=== PATIENT | female | born 2000 | race Caucasian/White ===

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

== ENCOUNTER 2019-02-21 16:04 | Emergency (ER) | payer MEDICAID ==
[~2019-02-21] VITALS: Ht 160 cm; Wt 81.4 kg
[~2019-02-21 16:04] MED LIST changes: +MACROBID100 MG PO; +TYLENOL W/CODEI1 TAB PO
[2019-02-21 16:28] VITALS: Ht 160 cm; Wt 81.4 kg
[2019-02-21 18:14] LABS: HCG URINE NEGATIVE (NEGATIVE)
[2019-02-21] MEDS ORDERED: MEDROL DOSE PACK4 MG PO (20:04)
[2019-02-21 20:18] VITALS: BP 125/71
== END 2019-02-21 20:18 | disposition home or self-care (01) ==
LOC: D.ER 16:04
PROVIDERS: Family Medicine
DX: R21 Rash and other nonspecific skin eruption (principal)

== ENCOUNTER 2019-02-25 00:07 | Emergency (ER) | payer MEDICAID ==
[~2019-02-25] VITALS: Ht 160 cm; Wt 81.4 kg
[~2019-02-25 00:07] MED LIST changes: +MEDROL DOSE PACK4 MG PO
[2019-02-25 00:23] VITALS: Ht 160 cm; Wt 81.4 kg
[2019-02-25] MEDS ORDERED: FEXOFENADINE H180 MG PO (00:38)
[2019-02-25] MEDS ORDERED: TYLENOL W/CODEI1 TAB PO (00:45)
[2019-02-25 01:02] VITALS: BP 125/89
== END 2019-02-25 01:00 | disposition home or self-care (01) ==
LOC: D.ER 00:07
DX: J06.9 Acute upper respiratory infection, unspecified (principal)